=== PATIENT | female | born 1985 | race Caucasian/White ===

== ENCOUNTER → 2017-01-29 | Outpatient (CLI) | payer BC ==
--- NOTE | 2017-01-29 11:35 | RADIOLOGY REPORT (SQ) ---
EXAM DESCRIPTION: MRI RT LOWER JOINT WITHOUT COMPLETED DATE/TIME: 01/29/2017 10:00 am REASON FOR STUDY: Knee pain M25.561 PAIN IN RIGHT KNEE COMPARISON: None. TECHNIQUE: Rightknee images acquired and stored on PACS. Multiplanar images include fat sensitive s equences as T1, water sensitive sequences as FST2 or STIR, cartilage sensitive sequences as FSPD, and gradient echo sequences. LIMITATIONS: None. FINDINGS: JOINT AND BURSAE: Trace fluid. No loose bodies. BONE CORTEX AND MARROW: No alteration of signal to suggest marrow replacement. No worrisome bone lesi ons. No occult fracture. ACL: Intact. No degeneration or ganglion cyst. PCL: Intact. MCL: Intact. No periligamentous edema or fluid. LCL: Intact. No periligamentous edema or fluid. MEDIAL MENISCUS: Probable minimal fraying along the free margin. Most of the signal within the menis cus posterior horn is likely degenerative otherwise. Very slightly extruded appearance. LATERAL MENISCUS: No tears. No abnormal signal. MEDIAL COMPARTMENT: Cartilage preserved. No bone bruises or reactive marrow edema. No osteophytes. LATERAL COMPARTMENT: Cartilage preserved. No bone bruises or reactive marrow edema. No osteophytes. PATELLA: No chondromalacia. No subchondral cysts. Medial and lateral retinacula intact. EXTENSOR MECHANISM: Intact. Quadriceps and patella tendons normal. SOFT TISSUES: Adjacent muscles and subcutaneous tissues normal. Normal flow void in popliteal artery and vein. OTHER: No other significant finding. IMPRESSION: 1. Mild medial meniscus changes as above. Slightly extruded appearance with signal as noted. 2. Otherwise, no significant internal derangement of the knee appreciated. TECHNICAL DOCUMENTATION: JOB ID: [id number]- All Rights Reserved
== END ==
LOC: RAD 09:15
PROVIDERS: ATTEND Physician Assistant
DX: M25.561 Pain in right knee (principal)